=== PATIENT | female | born 1970 ===

== ENCOUNTER 2019-05-03 10:53 | Emergency (ER) | payer MEDICAID ==
[~2019-05-03] VITALS: Ht 170.2 cm; Wt 163.0 kg
[2019-05-03] MEDS ORDERED: ACETAMINOPHEN 325MG TABLET ONE (11:30)
[2019-05-03] MEDS ORDERED: OSELTAMIVIR 75MG CAPSULE PO ONE (14:45)
[2019-05-03] MEDS ORDERED: IBUPROFEN 800MG TABLET PO ONE (14:45)
[2019-05-03 15:07] VITALS: BP 168/83
== END 2019-05-03 15:08 | disposition home or self-care (01) ==
LOC: ER 10:53
DX: J11.1 Influenza due to unidentified influenza virus with other respiratory manifestations (principal)
CPT/HCPCS: 71045; 87804; 99284